=== PATIENT | female | born 1980 | race Caucasian/White ===

== ENCOUNTER 2016-07-07 10:43 | Emergency (ER) | payer OTHER ==
[~2016-07-07] VITALS: Ht 154.9 cm; Wt 69.1 kg
[~2016-07-07 10:43] MED LIST: ACET-1256 PO; HYDR-5688 PO; PENI-82 PO
[2016-07-07 10:49] VITALS: TEMP 36.7; Ht 154.9 cm; Wt 69.1 kg
--- NOTE | 2016-07-07 11:13 | EMERGENCY ROOM VISIT NOTE ---
History Report prepared by [place]: Zoë Rehman Under the Supervision of: Dr. Gabriel Shirley M.D. First contact with patient: 10:52 Chief Complaint: LEG PAIN,LEG INJURY Stated Complaint: LEG DISCOMFORT History of Present Illness The patient is a 36 year old female who presents to the Emergency Room with complaints of persistent left leg discomfort that began a few days ago. She currently rates her discomfort as a 2/10 in severity. The patient states that she has noticed veins popping out on her left leg. She notes increased pain with straightening her left leg. The patient states that she originally thought that her discomfort was related to her work, due to her standing on her feet most every day. She states that she has been working less now, but still notices the pain. The patient denies any history of DVTs. Source of History: patient Onset: few days ago Position: leg (left) Symptom Intensity: 2/10 Timing: other (persistent) Modifying Factors (Worsening): other (straightening left leg) Note: Associated Symptoms: veins popping out on left leg. Review of Systems See HPI for pertinent positives & negatives. A total of 10 systems reviewed and were otherwise negative. Past Medical & Surgical Medical Problems: (1) No active medical problems Family History Cancer Diabetes mellitus Hypertension Lung disease Social History Smoking Status: Current Every Day Smoker Alcohol Use: occasionally Occupation Status: employed Current/Historical Medications No Active Prescriptions or Reported Meds Allergies Coded Allergies: No Known Allergies (Verified , 01/15/16) Physical Exam Vital Signs Date Time Temp Pulse Resp B/P Pulse Ox O2 Delivery O2 Flow Rate FiO2 07/07/16 12:03 86 18 154/112 97 07/07/16 11:40 86 18 154/112 97 Room Air 07/07/16 10:49 36.7 89 20 146/103 99 Room Air Physical Exam GENERAL: Patient is a healthy-appearing well-nourished HEAD: Normocephalic atraumatic EYES: Ocular movements intact pupils equal and react to light OROPHARYNX mucous membranes are moist no exudates present no erythema or edema present NECK: Supple no nuchal rigidity CHEST: Good equal expansion LUNGS: Clear and equal to auscultation CARDIAC: Normal S1 and S2 ABDOMEN: Soft nontender no guarding BACK: No CVA tenderness EXTREMITIES: Varicose veins noted in the left leg, no tenderness. No pain upon palpation normal muscle strength in all groups no clubbing cyanosis or edema NEURO: Patient is following commands is answering questions appropriately. Alert and oriented x3 Cranial Nerves 2-12 grossly intact Medical Decision & Procedures ER Provider Diagnostic Interpretation: US results as stated below per my review and radiologist interpretation: Venous Doppler left leg LEFT VENOUS DOPP LOWER EXT UNILAT CLINICAL HISTORY: Pt c/o LLE swelling pain. Edema. TECHNIQUE: Venous Doppler COMPARISON STUDY: None FINDINGS: Normal study IMPRESSION: Normal study Electronically signed by: Peyman Awan M.D. 07/07/2016 11:30 AM Dictated Date/Time: 07/07/2016 11:29 AM ED Course 1054: Past medical records reviewed. The patient was evaluated in room B10. A complete history and physical examination was performed. 1158: I reevaluated the patient and she is resting comfortably. I discussed the exam findings with her and I discussed the treatment plan. She verbalized complete understanding and agreement. She is ready to go home. Medical Decision Differential diagnosis: Etiologies such as DVT, musculoskeletal, infection, joint effusion, trauma, lymphedema, idiopathic, CHF, varicose veins, as well as others were entertained. This is a 36-year-old female who presents emergency department complaining of and gored varicose veins in her left leg. The patient has no pain to the leg but is concerned that the may be a blood clot. For this reason the patient was sent for a ultrasound of the left lower extremity. This did not show any evidence of a DVT. I recommended compression stockings to the patient and follow-up with orthopedics if the pain is continuing. The patient also has elevation in her pressure here for this and recommended patient follow-up with her primary care physician. Impression Primary Impression: Leg pain, left Scribe Attestation The scribe's documentation has been prepared under my direction and personally reviewed by me in its entirety. I confirm that the note above accurately reflects all work, treatment, procedures, and medical decision making performed by me. Departure Information Dispostion Home / Self-Care Prescriptions No Active Prescriptions or Reported Meds Referrals No Doctor, Assigned (PCP) Juan Mauro D.O. Forms HOME CARE DOCUMENTATION FORM, IMPORTANT VISIT INFORMATION, School Instructions, Work Instructions Patient Instructions Hypertension Control, Hypertension Dc, My [facility] Additional Instructions Need follow up with PCP for high blood pressure Follow up with DR Mauro's office for continued leg pain You have been examined and treated today on an emergency basis only. This is not a substitute for, or an effort to provide, complete comprehensive medical care. It is impossible to recognize and treat all injuries or illnesses in a single emergency department visit. It is therefore important that you follow up closely with your PCP. Call as soon as possible for an appointment. Thank you for your time and consideration. I look forward to speaking with you again soon. Please don't hesitate to call us if you have any questions.
--- NOTE | 2016-07-07 11:31 | DIAGNOSTIC IMAGING REPORT ---
Venous Doppler left leg LEFT VENOUS DOPP LOWER EXT UNILAT CLINICAL HISTORY: Pt c/o LLE swelling pain. Edema. TECHNIQUE: Venous Doppler COMPARISON STUDY: None FINDINGS: Normal study IMPRESSION: Normal study Electronically signed by: Peyman Awan M.D. 07/07/2016 11:30 AM Dictated Date/Time: 07/07/2016 11:29 AM
[2016-07-07 12:03] VITALS: BP 154/112; PULSE 86; O2SAT 97
== END 2016-07-07 12:07 | disposition home or self-care (01) ==
LOC: C.EDB 10:44
DX: M79.605 Pain in left leg (principal); I83.90 Asymptomatic varicose veins of unspecified lower extremity; F17.200 Nicotine dependence, unspecified, uncomplicated; Z83.3 Family history of diabetes mellitus; Z82.49 Family history of ischemic heart disease and other diseases of the circulatory system

== ENCOUNTER 2016-12-07 17:41 | Emergency (ER) | payer OTHER ==
[~2016-12-07] VITALS: Ht 152.4 cm; Wt 68.2 kg
[2016-12-07 17:59] VITALS: BP 136/99; TEMP 37; Ht 152.4 cm; Wt 68.2 kg
[2016-12-07] MEDS ORDERED: IBUP-103 PO (18:05)
[2016-12-07] MEDS ORDERED: ACET-1256 PO (18:05)
[2016-12-07] MEDS ORDERED: PENI-82 PO (18:17)
[2016-12-07 18:30] VITALS: PULSE 79; O2SAT 100
--- NOTE | 2016-12-07 23:50 | EMERGENCY ROOM VISIT NOTE ---
History First contact with patient: 18:06 Chief Complaint: DENTAL PAIN Stated Complaint: PAIN IN GUMS Nursing Triage Summary: I have a broken tooth on the L side of my mouth and now I have a lot of pain History of Present Illness The patient is a 36 year old female who presents to the Emergency Room with complaints of left upper dental pain for the past 6-7 months after breaking tooth. The patient reports that she has not been able to find anyone who will accept her insurance. She has not noticed any swelling of the gum, and has not noticed any foul taste or drainage. She rates her discomfort a 7 out of 10. She reports that the pain just started today. She denies any fevers or chills. Review of Systems 10 system review was performed and was negative except for pertinent positives and negatives as indicated in history of present illness Past Medical/Surgical History Medical Problems: (1) No active medical problems Family History Cancer Diabetes mellitus Hypertension Lung disease Social History Smoking Status: Current Every Day Smoker Alcohol Use: occasionally Occupation Status: employed Current/Historical Medications Scheduled Penicillin V Potassium (Veetids), 500 MG PO QID Scheduled PRN Acetaminophen (Tylenol), 1,000 MG PO Q6H PRN for Pain Ibuprofen Tab (Advil), 400-600 MG PO Q6H PRN for Pain Physical Exam Vital Signs Date Time Temp Pulse Resp B/P (MAP) Pulse Ox O2 Delivery O2 Flow Rate FiO2 12/07/16 18:30 79 18 100 Room Air 12/07/16 17:59 37.0 83 18 136/99 100 Room Air Physical Exam CONSTITUTIONAL: Healthy and well nourished. Alert and oriented X 3 with positive affect. HEENT: Normocephalic, atraumatic. Pupils equal, round and reactive. No facial edema noted. Ears and nares are clear. OROPHARYNX: The patient has poor dentition. She has no gingival erythema, fluctuance or pointing. LYMPHATICS: No preauricular, submental, submandibular or cervical chain adenopathy. NECK: Full active range of motion without discomfort. CARDIOVASCULAR: Regular rate and rhythm with no murmurs, rubs or gallops. INTEGUMENTARY: No rash or other significant dermatologic conditions noted. NEUROLOGIC: Facial sensations are intact. Medical Decision & Procedures ED Course Patient history and physical exam were performed. Nurse's notes were reviewed. Vital signs were reviewed and were normal. The patient was provided a prescription for Pen-Vee K 500 mg 4 times a day 10 days. She was encouraged to alternate ibuprofen and Tylenol for pain relief. She was provided contact information for Dr. Mario Hassan locally who accepts all insurances. The patient voiced understanding of all discharge instructions, and was happy with plan of care. Medical Decision Medication Reconcilliation Current Medication List: was personally reviewed by me Blood Pressure Screening Patient's blood pressure: Normal blood pressure Impression Primary Impression: Pain, dental Departure Information Dispostion Home / Self-Care Condition GOOD Prescriptions Penicillin V Potassium (Veetids) 500 Mg Tab 500 MG PO QID, #40 TAB Prov: Braden Hoyt PA 12/07/16 Referrals Mario Murphy D.M.D. Forms HOME CARE DOCUMENTATION FORM, IMPORTANT VISIT INFORMATION Patient Instructions My [facility] Additional Instructions Finish all Pen-Vee K antibiotics as prescribed. Ibuprofen 800 mg and/or Tylenol 1000 mg every 8 hours. You may also alternate these medications for more effective pain relief: Ibuprofen --4 HRS--> Tylenol --4 HRS--> ibuprofen --4 HRS--> Tylenol .... Soft foods. YOU MUST SEE A DENTIST FOR DEFINITIVE CARE. THE EMERGENCY DEPARTMENT DOES NOT PROVIDE's DENTAL SERVICES, REFERRALS OR CHRONIC PAIN MANAGEMENT. YOU MAY ALSO CALL YOUR FAMILY DOCTOR FOR PAIN MANAGEMENT UNTIL YOU SEE YOUR DENTIST.
== END 2016-12-07 18:30 | disposition home or self-care (01) ==
LOC: C.EDB 17:44 → C.EDD 18:30
DX: K08.89 Other specified disorders of teeth and supporting structures (principal); F17.210 Nicotine dependence, cigarettes, uncomplicated; Z80.9 Family history of malignant neoplasm, unspecified; Z83.3 Family history of diabetes mellitus; Z82.49 Family history of ischemic heart disease and other diseases of the circulatory system; Z83.6 Family history of other diseases of the respiratory system